=== PATIENT | male | born 1980 | race Caucasian/White ===

== ENCOUNTER 2019-03-09 18:55 | Emergency (ER) | payer OTHER ==
[~2019-03-09] VITALS: Ht 177.8 cm; Wt 74.8 kg
[2019-03-09 19:10] VITALS: BP 153/80
--- NOTE | 2019-03-09 19:11 | ER.PDOC ---
General Chief Complaint: Requesting Medical Care Stated Complaint: CHEST/BACK PAIN/FEVER 3 DAYS Time seen by MD: 19:06 Source: patient Exam Limitations: no limitations History of Present Illness Initial Comments 3 days of fever/cough and nasal congestion and sore throat, over last two days green mucus production with cough, kaci or chest pain other than with cough. Timing/Duration: gradual Severity: moderate Associated Symptoms: fever/chills, earache, runny nose, sinus pain/drainage, sore throat, cough Allergies: Coded Allergies: No Known Allergies (Unverified , 03/09/19) Constitutional: fever EENTM: ear pain, nose congestion, throat pain Respiratory: cough Cardiovascular: denies chest pain, denies syncope Gastrointestinal: denies abdominal pain Genitourinary: denies dysuria, denies flank pain Musculoskeletal: denies neck pain Skin: denies rash Psychiatric/Neurological: denies headache Physical Exam General Appearance: alert, no distress Eye: eyes nml inspection Ear: ear nml Nose: rhinorrhea Throat: pharyngeal erythema Neck: lymphadenopathy Respiratory: no resp.distress, breath sounds nml Abdomen: non-tender CVS: reg rate & rhythm, heart sounds nml Skin: color nml, no rash, warm/dry Extremities: non-tender, nml ROM NEURO/PSYCH: oriented x 3, CN's nml as tested, motor nml, sensation nml, mood/affect nml Results/Orders Results/Orders Orders - YANG GRUBER MD Xr Chest 1v (03/09/19 19:10) Vital Signs Date Time Temp Pulse Resp B/P (MAP) Pulse Ox O2 Delivery O2 Flow Rate FiO2 03/09/19 19:10 102.2 100 16 99 Room Air 03/09/19 19:10 102.2 100 16 153/80 (104) 99 Room Air 03/09/19 19:10 102.2 100 16 Departure Time of Disposition: 20:13 Disposition: 01 HOME, SELF-CARE Impression: Primary Impression: Bronchitis Condition: Stable Patient Instructions: Acute Bronchitis Referrals: NARAYAN ALVARADO MD Additional Instructions: return for any worsening symptoms Duration or Time Spent with Pa: YANG ARCE MD Mar 09, 2019 19:11
--- NOTE | 2019-03-09 19:57 | DIREP ---
PROCEDURE:CHEST 1 VIEW COMPARISON:None. INDICATIONS:cough with mucus production FINDINGS: LUNGS/PLEURA:No significant pulmonary parenchymal abnormalities. No effusions. VASCULATURE:Normal. Unremarkable pulmonary vasculature. CARDIAC:Normal. No cardiac silhouette abnormality or cardiomegaly. MEDIASTINUM:Normal. No visible mass or adenopathy. BONES:Normal. No fracture or visible bony lesion. OTHER:Negative. CONCLUSION:No active cardiopulmonary process demonstrated. Dictated by: Balwinder Stone M.D. on 03/09/2019 at 07:55 PM
[2019-03-09 20:00] VITALS: BP 136/88
== END 2019-03-09 20:22 | disposition home or self-care (01) ==
LOC: ER 18:55
DX: J40 Bronchitis, not specified as acute or chronic (principal); J02.9 Acute pharyngitis, unspecified
CPT/HCPCS: 71045; 99283